=== PATIENT | female | born 1930 | race Caucasian/White ===

== ENCOUNTER 2018-07-08 12:37 | Emergency (ER) | payer OTHER ==
[~2018-07-08] VITALS: Ht 167.6 cm; Wt 74.8 kg
[2018-07-08] MEDS ORDERED: ALBUTEROL INHL (12:45)
--- NOTE | 2018-07-08 13:00 | NUR ---
PATIENT HERE FROM [facility] / [facility]. SHE IS AWAKE AND ALERT, C/O BACK AND LEFT HIP PAIN.
[2018-07-08] MEDS ORDERED: HYDROCODONE/APAP 5-325MG TABLET ONE (13:11)
[2018-07-08] MEDS ORDERED: HYDROCODONE/APAP 5-325MG TABLET PO ONE (13:15)
[2018-07-08 13:22] LABS: BASOPHILS # (AUTO) 0.1 K/uL (0.0-8.0); BASOPHILS % (AUTO) 0.3 % (0.0-2.0); HEMATOCRIT 44.2 % (31.2-41.9); HEMOGLOBIN 14.7 g/dL (10.9-14.3); LYMPHOCYTES # (AUTO) 0.7 K/uL (20.0-40.0); LYMPHOCYTES % (AUTO) 2.3 % (20.5-51.5); MEAN CORPUSCULAR HEMOGLOBIN 27.3 uug (24.7-32.8); MEAN CORPUSCULAR HGB CONC 33 g/dL (32.3-35.6); MEAN CORPUSCULAR VOLUME 82.4 fL (75.5-95.3); MONOCYTES # (AUTO) 6.4 K/uL (2.0-10.0); MONOCYTES % (AUTO) 22.1 % (0.0-11.0); NEUTROPHILS # (AUTO) 21.9 K/uL (1.8-8.9); NEUTROPHILS % (AUTO) 75.3 % (38.5-71.5); PLATELET COUNT (AUTO) 180 K/uL (179-408); RED BLOOD CELL COUNT(AUTO) 5.37 MIL/uL (3.63-4.92)
[2018-07-08 13:29] LABS: CARBON DIOXIDE 27 mmol/L (21-32); CHLORIDE 99 mmol/L (98-107); GLUCOSE 166 mg/dL (74-106); POTASSIUM 4.1 mmol/L (3.5-5.1); UREA NITROGEN, BLOOD 23 mg/dL (7-18)
[2018-07-08 13:44] LABS: BAND % (MANUAL) 9 % (0-10); NEUTROPHILS % (MANUAL) 71 % (42-75)
[2018-07-08 13:45] LABS: LYMPHOCYTES % (MANUAL) 3 % (20-40); MONOCYTES % (MANUAL) 17 % (2-10)
[2018-07-08] MEDS ORDERED: MORPHINE SULFATE 4 MG/1 ML DISP.SYRIN ONE (14:20)
[2018-07-08] MEDS ORDERED: ONDANSETRON 4 MG/2 ML VIAL ONE (14:20)
[2018-07-08] MEDS ORDERED: MORPHINE SULFATE 4 MG/1 ML DISP.SYRIN IV ONE (14:30)
[2018-07-08] MEDS ORDERED: ONDANSETRON IV *ER 4 MG/2 ML VIAL IV ONE (14:30)
--- NOTE | 2018-07-08 14:30 | NUR ---
PATIENT STATED THAT [facility] DID NOT HELP WITH PAIN. I NOTIFIED DR PAUL. MORPHINE GIVEN ORDERED. DAUGHTER AT BEDSIDE.
[2018-07-08] MEDS ORDERED: IV NORMAL SALINE 1000 ML BAG IV ONE (16:30)
--- NOTE | 2018-07-08 16:34 | NUR ---
PATIENT STATES PAIN HAS DIMINISHED SOME. URINE SENT TO LAB
[2018-07-08 16:37] LABS: *BILIRUBIN,URIN NEGATIVE (NEGATIVE); *BLOOD, URINE 3+ (NEGATIVE); *CLARITY,URINE SLIGHTLY CLOUDY (CLEAR); *COLOR,URINE DARK YELLOW (YELLOW); *KETONES,URINE TRACE (NEGATIVE); *PROTEIN,URINE 2+ (NEGATIVE); *UROBILINOGEN,URINE 0.2 E.U./dl (NORMAL); LEUKOCYTE ESTERASE ,URINE NEGATIVE (NEGATIVE); NITRITE, URINE NEGATIVE (NEGATIVE); PH,URINE 5.5 (5.0-8.0); UGLUCOSE NEGATIVE (NEGATIVE)
[2018-07-08 16:55] LABS: BACTERIA,URINE FEW /HPF (NONE SEEN); MUCUS,URINE MANY /LPF (0-FEW); URINE AMORPHOUS URATE MODERATE /HPF; WBC,URINE 0-3 /HPF (0-3)
--- NOTE | 2018-07-08 17:52 | NUR ---
Dr Butler was at bedside speaking to patient and daughter. Patient states the pain has returned.. pain in hip and back.
[2018-07-08] MEDS ORDERED: MORPHINE SULFATE 2 MG/1 ML DISP.SYRIN ONE (17:55)
[2018-07-08] MEDS ORDERED: MORPHINE SULFATE 2 MG/1 ML DISP.SYRIN IV ONE (18:00)
--- NOTE | 2018-07-08 18:07 | NUR ---
HOPPER AWARE OF PATIENT STATUS...
--- NOTE | 2018-07-08 18:30 | NUR ---
PATIENT AND FAMILY AWARE OF PENDING TRANSFER TO [facility]
--- NOTE | 2018-07-08 19:11 | NUR ---
REPORT GIVEN TO [facility] RN.
--- NOTE | 2018-07-08 19:11 | NUR ---
HANDOFF REPORT GIVEN TO TIMMY ASHTON
--- NOTE | 2018-07-08 19:48 | NUR ---
Patient Tranfers to [facility]. VSS. Daughter at bedside.
--- NOTE | 2018-07-08 19:51 | NUR ---
Pt transferred to [facility]. report was given to RN at [place] by day shift nurse. Accepted by . Dx: fall/unable to ambulate
== END 2018-07-08 19:58 | disposition short-term general hospital (02) ==
LOC: ER 12:37
DX: S32.050A Wedge compression fracture of fifth lumbar vertebra, initial encounter for closed fracture (principal); S80.02XA Contusion of left knee, initial encounter; S80.01XA Contusion of right knee, initial encounter; S70.02XA Contusion of left hip, initial encounter; J45.909 Unspecified asthma, uncomplicated; W01.0XXA Fall on same level from slipping, tripping and stumbling without subsequent striking against object, initial encounter; Y93.89 Activity, other specified; Y92.89 Other specified places as the place of occurrence of the external cause; Y99.8 Other external cause status
CPT/HCPCS: 36415; 70450; 71045; 72100; 72131; 72192; 73060; 73502; 73562 ×2; 73610; 80048; 81001; 82550; 85025; 93005; 96374; 96375; 96376; 99285; J2270 ×2; J2405; A4663